=== PATIENT | male | born 1955 | race Caucasian/White ===

== ENCOUNTER → 2020-05-23 | Day surgery (SDC) | payer OTHER ==
[~2020-05-23] MED LIST: ACETAMINOPHEN500 M1 PO; ATORVASTATIN CA10 MG PO; CARAFATE1 GM PO; IRON18 MG PO; LEXAPRO 10MG TA10 MG PO; LO-DOSE ASPIRIN81 MG PO; MEN'S MULTI-VI1 EACH PO; MOTRIN600 MG PO; PRILOSEC20 MG PO; PROTONIX 40MG T40 MG PO
== END | disposition home or self-care (01) ==
LOC: FAS 09:59
DX: Z45.2 Encounter for adjustment and management of vascular access device (principal); J44.9 Chronic obstructive pulmonary disease, unspecified; K21.9 Gastro-esophageal reflux disease without esophagitis; I65.23 Occlusion and stenosis of bilateral carotid arteries; I73.9 Peripheral vascular disease, unspecified; I10 Essential (primary) hypertension; F41.9 Anxiety disorder, unspecified; F17.210 Nicotine dependence, cigarettes, uncomplicated; E78.00 Pure hypercholesterolemia, unspecified; Z85.028 Personal history of other malignant neoplasm of stomach; Z95.828 Presence of other vascular implants and grafts; Z82.49 Family history of ischemic heart disease and other diseases of the circulatory system; Z20.822 Contact with and (suspected) exposure to COVID-19
CPT/HCPCS: J0690; J2001; J2250